=== PATIENT | female | born 1995 | race Hispanic/Latino ===

== ENCOUNTER 2017-05-15 16:36 | Emergency (ER) | payer BC ==
[2017-05-15 17:13] LABS: #Eosinphils 0.1 thou/uL (0.0-0.7); #Monocytes 0.4 thou/uL (0.11-0.59); #Neutrophils 4.4 thou/uL (1.40-6.50); %Basophils 0.2 % (0.0-1.0); %Eosinophils 1.7 % (0.0-10.0); %Lymphocytes 28.7 % (21.0-51.0); %Monocytes 6.3 % (0.0-10.0); Hematocrit 38.3 % (36.0-47.0); Mean Platelet Volume 6.6 fL (7.4-10.4); Red Blood Cell (RBC) Count 4.44 mill/uL (4.20-5.40); White Blood Cell (WBC) Count 6.9 thou/uL (4.8-10.8)
[2017-05-15 17:32] LABS: ALT (SGPT) 36 U/L (8-55); AST (SGOT) 23 U/L (5-34); Alkaline Phosphatase 73 U/L (40-150); Anion Gap 12 mmol/L (10-20); BUN (Urea Nitrogen) 6 mg/dL (7.0-18.7); Bilirubin, Total Less than 0.2 mg/dL (0.2-1.2); Calc. Creatinine Clearance 0 mL/min (70-130); Calcium 9.5 mg/dL (7.8-10.44); Carbon Dioxide 24 mmol/L (22-29); Chloride 103 mmol/L (98-107); Estimated GFR-MDRD Greater than 90; Globulin 3.1 g/dL (2.4-3.5); Protein, Total 6.8 g/dL (6.0-8.3)
--- NOTE | 2017-05-15 18:03 | ULT ---
OB ULTRASOUND: 05/15/17 HISTORY: Vaginal spotting for the past three weeks. FINDINGS: A single live intrauterine gestation is seen with measurements corresponding to an estimated gestati onal age of 17 weeks, 3 days and NORRIS at 10/20/17. The estimated weight measures 181 grams or 6 oz. BIOMETRY: BPD 3.87 cm 17 weeks, 5 days HC 14.65 cm 17 weeks, 6 days AC 11.18 cm 17 weeks, 0 days FL 2.33 cm 17 weeks, 0 days heart rate measures 135 beats per minute. Placenta is anteriorly located without evidence of p lacenta previa. Amniotic fluid is adequate. The cervical length measures 4.2 cm. The visualized anatomy including the stomach, four chamber heart, lateral ventricles, cerebell um, urinary bladder, cord insertion, upper and lower extremities are unremarkable. The remainder of the anatomy is not satisfactorily visualized. IMPRESSION: Single live IUP of 17 weeks, 3 days estimated gestational age and NORRIS at 10/20/17. POS: [facility]
[2017-05-15 18:06] LABS: Bilirubin Negative (Negative); Blood, Urine Trace (Negative); Glucose, Urine (Dipstick) Negative (Negative); Ketone, Urine Negative (Negative); Nitrite Negative (Negative); Protein, Urine (Dipstick) Negative (Neg-Trace); Urobilinogen 0.2 mg/dL (0.2-1.0)
[2017-05-15 18:12] LABS: Bacteria/HPF 1+ HPF (None Seen); Hyaline Casts/LPF 0-3 HYALINE CAST LPF (0-3 Hyaline); Squamous Epithelial 0-3 HPF (0-3)
== END 2017-05-15 18:57 | disposition home or self-care (01) ==
LOC: ERS 16:36
DX: O20.9 Hemorrhage in early pregnancy, unspecified (principal); O23.42 Unspecified infection of urinary tract in pregnancy, second trimester; O99.89 Other specified diseases and conditions complicating pregnancy, childbirth and the puerperium; G47.00 Insomnia, unspecified; O99.342 Other mental disorders complicating pregnancy, second trimester; F41.9 Anxiety disorder, unspecified; Z3A.15 15 weeks gestation of pregnancy; Z79.899 Other long term (current) drug therapy
CPT/HCPCS: 36415; 76805; 80053; 81003; 81015; 84702; 85025; 86900; 86901; 87086; 87480; 87491; 87510; 87591; 87660

== ENCOUNTER 2017-10-14 21:00 | Inpatient (IN) | payer BC, OTHER ==
[~2017-10-14 21:00] MED LIST: Bupivacaine 0.25% HCL 30 ML VIAL ONE; Labetalol 100 MG/20 ML MDV ONE; hydrALAZINE 20 MG/ML VIAL ONE
[2017-10-14] MEDS: Lactated Ringer's 1,000 ML IV SCH (23:00)
[2017-10-14] MEDS ORDERED: Misoprostol 100 MCG TAB ONE (23:19)
[2017-10-14] MEDS ORDERED: Diphenoxylate HCl/Atropine Tablet PO PRN (23:22)
[2017-10-14] MEDS ORDERED: Methylergonovine 0.2 MG/ML VIAL IM PRN (23:22)
[2017-10-14] MEDS ORDERED: Misoprostol 200 MCG TAB PR PRN (23:22)
[2017-10-14] MEDS ORDERED: Promethazine HCl 25 MG/ML VIAL IM PRN (23:22)
[2017-10-14] MEDS ORDERED: HYDROcodone/Acetaminophen 5/325 mg Tablet PO PRN (23:22)
[2017-10-14] MEDS ORDERED: Lidocaine 1% (PF) 30 ML VIAL SC PRN (23:22)
[2017-10-14] MEDS ORDERED: Acetaminophen 500 MG TAB PO PRN (23:22)
[2017-10-14] MEDS ORDERED: Ibuprofen 800 MG TAB PO PRN (23:22)
[2017-10-14] MEDS ORDERED: Ondansetron HCl/PF 4 MG/2 ML Vial IVP PRN (23:22)
[2017-10-14] MEDS ORDERED: Zolpidem Tartrate 5 MG TAB PO PRN (23:22)
[2017-10-14] MEDS ORDERED: LR 500 ML/Oxytocin 10 units 500 ML IV SCH (23:22)
[2017-10-14] MEDS ORDERED: Carboprost 250 MCG/ML AMP IM PRN (23:22)
[2017-10-14 23:46] VITALS: BMI 37.5
[2017-10-15] MEDS: Misoprostol 100 MCG TAB VAG SCH ×3 (00:26→06:48)
[2017-10-15 00:28] LABS: Hemoglobin 11.2 g/dL (12.0-16.0); Mean Corpuscular HGB CONC 33.9 g/dL (32.0-36.0); Mean Corpuscular Hemoglobin 26.8 pg (27.0-31.0); Mean Corpuscular Volume 79.1 fl (81.0-99.0); Mean Platelet Volume 8.1 fL (7.4-10.4); Platelet Count 250 thou/uL (130-400); RBC Distribution Width 15.7 % (11.5-14.5); Red Blood Cell (RBC) Count 4.18 mill/uL (4.20-5.40); White Blood Cell (WBC) Count 6.3 thou/uL (4.8-10.8)
[2017-10-15 01:03] LABS: Hep B Surf Ag Non-Reactive S/CO (NonReactive); Syphilis Antibody Nonreactive (Nonreactive); Syphilis Antibody Index 0.04 S/CO (<1.00 Non-Reactive)
[2017-10-15] MEDS: Lactated Ringer's 1,000 ML IV SCH ×4 (06:48→15:50)
--- NOTE | 2017-10-15 08:08 | PDOC.LDHP ---
Labor and Delivery H&P Chief complaint: scheduled induction HPI: 22yo at 40w2d by LMP c/w 15w sono for IOL. No complaints. s/p 3 doses cytotec overnight, mild contractions. Current gestational age (weeks): 40 Due date: 10/13/17 Dating criteria: last menstrual period Grav: 2 Para: 1 Current complications: none Abnormal US findings: No Past Medical History: denies Current medications: pre- vitamins Previous surgical history: none Allergies/Adverse Reactions: Allergies Allergy/AdvReac Type Severity Reaction Status Date / Time No Known Allergies Allergy Unverified 08/16/13 06:31 Social history: none - Physical Exam Vital signs reviewed and normal: yes General: NAD Heart: RRR Lungs: CTAB Abdomen: gravid Extremeties: no edema FHT: category 1 [place] contractions every: irregular - Vaginal Exam cm dilated: 2 Effacement: 75% Station: -2 (arom clear) - OB Labs Blood type: O RH: positive Antibody Screen: negative HIV: negative RPR: negative HEPSAg: negative 1 hour GCT: positive 3 hour GTT: negative GBS: negative Rubella: immune - Assessment L&D Assessment: elective induction at term - Plan Plan: admit to L&D, labor augmentation if indicated, informed consent obtained, anesthesia consult for pain management
[2017-10-15] MEDS ORDERED: DISCONTINUE ALL PREVIOUS NARCOTICS FS SCH (09:30)
[2017-10-15] MEDS: Bupivacaine 0.5% 20 ML, Fentanyl 400 MCG in Sodium Chloride 0.9% 72 ML EPIDURAL SCH ×2 (10:15→16:04)
--- NOTE | 2017-10-15 12:58 | PDOC.LDPN ---
Labor & Delivery Progress Note - Subjective Subjective: comfortable - Objective Vital signs reviewed and normal: yes General: NAD Uterine fundus: non tender Dilation: 6 Effacement: 90% Station: 0 FHT: category 1 [place] contractions every: q2-3min - Assessment (1) Term delivered Code(s): O80 - ENCOUNTER FOR FULL-TERM UNCOMPLICATED DELIVERY Current Visit: Yes Status: Acute Plan: continue plan of care
[2017-10-15] MEDS: LR / Pitocin 40 units/1000 ml 1,000 ML IV PRN ×2 (15:22→18:35)
[2017-10-15] MEDS ORDERED: Methylergonovine 0.2 MG/ML VIAL ONE ×2 (15:41→16:06)
[2017-10-15 16:12] LABS: Hemoglobin 10.7 g/dL (12.0-16.0); Mean Corpuscular HGB CONC 32.9 g/dL (32.0-36.0); Mean Corpuscular Hemoglobin 26.2 pg (27.0-31.0); Mean Corpuscular Volume 79.7 fl (81.0-99.0); Mean Platelet Volume 8.3 fL (7.4-10.4); Platelet Count 237 thou/uL (130-400); RBC Distribution Width 15.8 % (11.5-14.5); Red Blood Cell (RBC) Count 4.09 mill/uL (4.20-5.40); White Blood Cell (WBC) Count 8.8 thou/uL (4.8-10.8)
[2017-10-15 16:18] LABS: PTT 24.8 SEC (22.9-36.1)
--- NOTE | 2017-10-15 16:34 | PDOC.OPDEL ---
OB Operative/Delivery Note Delivery Dr/Surgeon: Diane Assist: n/a Pre-Delivery Diagnosis: elective induction Procedure/Post Delivery Dx: spontaneous vaginal delivery Weeks gestation: 40 Anesthesia: epidural - Findings A Sex: female Weight: 8 lb 7 oz - 1 min: 8 - 5 min: 9 - Additional Findings/Plan Placenta delivered: spontaneous Repaired Obstetrical Laceration: none Estimated blood loss: 500, initially Compilations/Other Findings: NC x 1 Placenta delivered intact with gentle traction. Immediate gushing of bright red blood, bimanual massage improved. Polanco catheter in bladder. Pitocin infusion. Again bright red gushing blood and clots noted, cytotec 800mcg and methergine 0.2mg called for and given. Manual uterine curretage with hand performed and fragments of membranes extracted. Tone improved with scant bleeding. EBL = 500cc. Approx 5min later nursing performing fundal massage and extruded 200cc clot, I then reexamined patient and 100cc additional clot pulled from lower segment with constant trickling noted. T&C, second IV, hemabate and TXA called for. Continued bimanual massage given and uterus noted to be boggy. No additional membranes or placental fragments pulled from uterus. Hemabate and second dose methergine given. Cervix ran and no lacerations noted. Dr Gómez entered room and bakri was opened as uterus still continued to have gushing and clots in [place]. Dr Gómez did abdominal sono while I inserted bakri to fundus. Balloon was inflated with 300cc sterile saline and stayed well in uterus. Drain hooked up to polanco to gravity. No bleeding around bakri noted. Third dose of methergine given after additional 15minutes. TXA infusion began. Small amount of blood draining into polanco bag. Fundus approx 3 fingerbreadths above umbilicus. Resono'ed and no appearance of back up of blood around the bakri balloon noted. Vital signs were stable, pt is asymptomatic. Labs sent for CBC, coags, fibrinogen. Pt . Plan continue methergine scheduled po, cont epidural x 4 hrs and if stable begin deflating balloon in 12 hours, over then next 12 hours. Total ebl 2L. Post delivery plan: recovery in LICU
[2017-10-15] MEDS ORDERED: Methylergonovine 0.2 MG/ML VIAL IM SCH ×2 (17:00)
[2017-10-15] MEDS ORDERED: Lanolin Ointment 7 GM TUBE TOP PRN ×2 (19:43→19:51)
[2017-10-15] MEDS ORDERED: diphenhydrAMINE 25 MG CAP PO PRN (19:51)
[2017-10-15] MEDS ORDERED: HYDROcodone/Acetaminophen 5/325 mg Tablet PO PRN (19:51)
[2017-10-15] MEDS ORDERED: Milk Of Magnesia 30 ML UDCUP PO PRN (19:51)
[2017-10-15] MEDS ORDERED: Bisacodyl 10 MG SUPP PR PRN (19:51)
[2017-10-15] MEDS ORDERED: LR / Pitocin 40 units/1000 ml 1,000 ML IV SCH (19:51)
[2017-10-15] MEDS ORDERED: Preparation H Ointment 28 GM TUBE PR PRN (19:51)
[2017-10-15] MEDS ORDERED: Benzocaine/Menthol 20-0.5% 60 ML CAN TOP PRN (19:51)
[2017-10-15 20:37] LABS: #Basophils 0.1 thou/uL (0.0-0.2); #Lymphocytes 1.2 thou/uL (1.20-3.40); #Monocytes 0.8 thou/uL (0.11-0.59); #Neutrophils 9.6 thou/uL (1.40-6.50); %Basophils 0.5 % (0.0-1.0); %Lymphocytes 10.6 % (21.0-51.0); Hemoglobin 9.3 g/dL (12.0-16.0); Mean Corpuscular HGB CONC 32.9 g/dL (32.0-36.0); Mean Corpuscular Hemoglobin 26.1 pg (27.0-31.0); Mean Corpuscular Volume 79.3 fl (81.0-99.0); Mean Platelet Volume 8.3 fL (7.4-10.4); Platelet Count 212 thou/uL (130-400); RBC Distribution Width 15.7 % (11.5-14.5); Red Blood Cell (RBC) Count 3.56 mill/uL (4.20-5.40); White Blood Cell (WBC) Count 11.7 thou/uL (4.8-10.8)
[2017-10-15] MEDS ORDERED: Ferrous Sulfate 325 MG TAB PO SCH (20:45)
[2017-10-15] MEDS ORDERED: Methylergonovine 0.2 MG TAB PO SCH (21:00)
[2017-10-15] MEDS: CEFAZOLIN/Water 2 GM/20 ML SYRINGE SLOW IVP SCH (21:30)
[2017-10-15] MEDS: Tranexamic Acid 1,000 MG in Sodium Chloride 0.9% 250 ML 250 ML IVPB SCH (21:30)
[2017-10-15] MEDS ORDERED: CEFAZOLIN 2 GM in Sodium Chloride 0.9% 100 ML IVPB SCH (22:00)
--- NOTE | 2017-10-16 01:57 | PDOC.EVN ---
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 No acute needs now. Patient resting now. Serial Hcts in processs. Lorena in use, with sherri. Stable at this point.
[2017-10-16] MEDS: Ibuprofen 800 MG TAB PO SCH ×4 (03:32→20:30)
[2017-10-16] MEDS: Docusate Calcium (SURFAK) 240 MG CAP PO SCH ×3 (03:32→20:30)
[2017-10-16 05:29] LABS: Mean Corpuscular HGB CONC 32.7 g/dL (32.0-36.0); Mean Corpuscular Hemoglobin 26.1 pg (27.0-31.0); Mean Corpuscular Volume 79.9 fl (81.0-99.0); Mean Platelet Volume 8.2 fL (7.4-10.4); Platelet Count 207 thou/uL (130-400); RBC Distribution Width 15.8 % (11.5-14.5); Red Blood Cell (RBC) Count 3.06 mill/uL (4.20-5.40)
[2017-10-16] MEDS: Tranexamic Acid 1,000 MG in Sodium Chloride 0.9% 250 ML 250 ML IVPB SCH (05:45)
[2017-10-16] MEDS: CEFAZOLIN/Water 2 GM/20 ML SYRINGE SLOW IVP SCH (05:55)
--- NOTE | 2017-10-16 08:05 | PDOC.PP ---
Post Progress Note Post Day #: 1 PO intake tolerated: yes Flatus: yes Ambulation: no Weight Weight 233 lb - Physical Examination General: NAD Cardiovascular: RRR Respiratory: non-labored breathing Abdominal: no distention, appropriately TTP Fundus firm & at: umb-2 Extremities: negative homans (B) Skin: no rash Neurological: no gross focal deficits Psychiatric: normal affect Result Diagrams: 10/16/17 04:46 Additional Labs: Post Labs Blood Type O POSITIVE 10/15/17 00:05 Hep Bs Antigen Non-Reactive S/CO (NonReactive) 10/15/17 00:05 (1) Term delivered Code(s): O80 - ENCOUNTER FOR FULL-TERM UNCOMPLICATED DELIVERY Status: Acute (2) hemorrhage Code(s): O72.1 - OTHER IMMEDIATE HEMORRHAGE Status: Acute Qualifiers: hemorrhage type: other immediate Qualified Code(s): O72.1 - Other immediate hemorrhage - Assessment/Plan VSSAF PPH ebl 2L Hgb 11.2--> hgb 8.0 this am. No s/sx anemia. Trend tomorrow am. Would expect hgb in 7 range with EBL. Cont iron, no indication for transfusion at this time. Bakri in place- Deflate over next 2hr and observe for bleeding x 1 hr, if stable and appropriate bleeding will transfer to floor this am. Stop uterotonics and ppx Ancef. DC polanco with bakri and ambulate - doing well Rh pos RImm Cont care, possible home tomorrow if stable.
[2017-10-16] MEDS ORDERED: Adacel (T-DAP) 0.5 ML VIAL IM ONE (09:00)
[2017-10-16] MEDS: Prenatal Vitamin 1 TAB PO SCH (12:01)
[2017-10-16] MEDS: Ferrous Sulfate 325 MG TAB PO SCH ×2 (12:01→20:30)
[2017-10-17] MEDS: Ibuprofen 800 MG TAB PO SCH (06:03)
[2017-10-17] MEDS: Docusate Calcium (SURFAK) 240 MG CAP PO SCH (09:05)
[2017-10-17] MEDS: Prenatal Vitamin 1 TAB PO SCH (09:06)
[2017-10-17] MEDS: Ferrous Sulfate 325 MG TAB PO SCH (09:06)
[2017-10-17 12:29] VITALS: BP 113/72; TEMP 97.4
--- NOTE | 2017-10-24 14:40 | PQF ---
Sanam AlarconKATIE [id number] [facility] [id number] CLINICAL DOCUMENTATION CLARIFICATION FORM: POST DISCHARGE Addendum to original discharge summary date: ____ Late entry note date: __ DATE: 10/20/2017 ATTN: Dr. Contreras Please exercise your independent, professional judgment in responding to the clarification form. Clinical indicators are provided on the bottom of this form for your review Please check appropriate box(s): [ X] Acute blood loss anemia [ ] Post-op anemia related to acute blood loss [ ] Anemia: [ ] Aplastic [ ] Nutritional [ ] Drug induced (specify) ___ [ ] Hemolytic [ ] Hereditary [ ] Acquired [ ] Autoimmune [ ] Non-autoimmune [ ] Enzyme disorder [ ] Chronic Anemia: [ ] Blood loss [ ] Hemolytic [ ] Simple [ ] Due to Vitamin B12 Deficiency [ ] Other [ ] Anemia of Chronic Disease (please specify) [ ] Anemia due to Neoplasm: [ ] Primary [ ] Secondary [ ] Anemia due to (please choose): [ ] Due to Chemotherapy [ ] Due to Radiotherapy [ ] Due to Immunotherapy [ ] Other diagnosis [ ] Unable to determine In addition, please specify: Present on Admission (POA): [ ] Yes [ ] No [ ] Unable to determine For continuity of documentation, please document condition throughout progress notes and discharge summary. Thank You. CLINICAL INDICATORS - SIGNS / SYMPTOMS / LABS Acute bleed Anemia Low hemoglobin and/or hematocrit Estimated blood loss RISK FACTORS hemorrhage TREATMENTS: placement of Bakri balloon MTDD
== END 2017-10-17 12:49 | disposition home or self-care (01) | DRG 982 ==
LOC: L&D 22:23 → 3SE 10-16 12:32
PROVIDERS: ADMIT Student in an Organized Health Care Education/Training Program; ATTEND Student in an Organized Health Care Education/Training Program
PROC: 3E0P7VZ Introduction of Hormone into Female Reproductive, Via Natural or Artificial Opening (ICD-10-PCS; 2017-10-14)
PROC: 10E0XZZ Delivery of Products of Conception, External Approach (ICD-10-PCS; principal; 2017-10-15)
PROC: 0UCC0ZZ Extirpation of Matter from Cervix, Open Approach (ICD-10-PCS; 2017-10-15)
PROC: 0W3J0ZZ Control Bleeding in Pelvic Cavity, Open Approach (ICD-10-PCS; 2017-10-15)
DX: O72.2 Delayed and secondary postpartum hemorrhage (principal); D62 Acute posthemorrhagic anemia; Z37.0 Single live birth
CPT/HCPCS: 36415; 51702; 76815; 85027; 85384; 85610; 85730; 86780; 86850; 86900; 86901; 87340; 90715; J0360; J2001; J2210; J2405; J3010; J3490; J7050; J7120; S0020

== ENCOUNTER 2017-10-24 12:21 | Emergency (ER) | payer BC, OTHER ==
[2017-10-24 12:44] LABS: #Eosinphils 0.1 thou/uL (0.0-0.7); #Lymphocytes 2.7 thou/uL (1.20-3.40); #Monocytes 0.4 thou/uL (0.11-0.59); #Neutrophils 3.1 thou/uL (1.40-6.50); %Basophils 0.5 % (0.0-1.0); %Eosinophils 0.9 % (0.0-10.0); %Lymphocytes 43.4 % (21.0-51.0); %Monocytes 5.9 % (0.0-10.0); %Neutrophils 49.3 % (42.0-75.0); Hemoglobin 9.8 g/dL (12.0-16.0); Mean Corpuscular HGB CONC 32.2 g/dL (32.0-36.0); Mean Corpuscular Volume 80.8 fl (81.0-99.0); Mean Platelet Volume 6.2 fL (7.4-10.4); Platelet Count 542 thou/uL (130-400); RBC Distribution Width 17.4 % (11.5-14.5); Red Blood Cell (RBC) Count 3.76 mill/uL (4.20-5.40); White Blood Cell (WBC) Count 6.2 thou/uL (4.8-10.8)
[2017-10-24] MEDS ORDERED: Morphine 4 MG/ML VIAL ONE (12:46)
[2017-10-24] MEDS ORDERED: Ondansetron HCl/PF 4 MG/2 ML Vial ONE (12:47)
[2017-10-24 12:55] LABS: PTT 25.5 SEC (22.9-36.1); Prothrombin Time 13.4 SEC (12.0-14.7)
[2017-10-24 12:57] LABS: D-Dimer Test 1.53 *mcg/mL (0.27-0.43)
[2017-10-24 13:11] LABS: Bilirubin Negative (Negative); Blood, Urine Negative (Negative); Clarity CLOUDY (Clear); Glucose, Urine (Dipstick) Negative (Negative); Leukocyte Trace (Negative); Nitrite Negative (Negative); Protein, Urine (Dipstick) 30 mg/dL (Neg-Trace)
[2017-10-24 13:19] LABS: Bacteria/HPF None Seen HPF (None Seen); Pathc Cast-AUWi Flag 1.76 (0-2.49)
[2017-10-24 13:22] LABS: ALT (SGPT) 26 U/L (8-55); AST (SGOT) 26 U/L (5-34); Albumin 3.7 g/dL (3.5-5.0); Alkaline Phosphatase 150 U/L (40-150); Anion Gap 21 mmol/L (10-20); BUN (Urea Nitrogen) 11 mg/dL (7.0-18.7); Bilirubin, Total 0.2 mg/dL (0.2-1.2); Calc. Creatinine Clearance 0 mL/min (70-130); Calcium 9.3 mg/dL (7.8-10.44); Carbon Dioxide 15 mmol/L (22-29); Chloride 107 mmol/L (98-107); Estimated GFR-MDRD Greater than 90; Glucose 96 mg/dL (70-105); Lipase 26 U/L (8-78); Potassium 3.7 mmol/L (3.5-5.1); Protein, Total 6.7 g/dL (6.0-8.3); Sodium 139 mmol/L (136-145)
[2017-10-24 13:30] LABS: Hyaline Casts/LPF 0-3 HYALINE CAST LPF (0-3 Hyaline); RBC/HPF 0-3 HPF (0-3); Renal Epithelial None Seen HPF (0-3); Transitional Epithelial NONE SEEN HPF (0-3)
[2017-10-24] MEDS ORDERED: ISOVUE-370 76%-LOCM 1 ML ONE (13:53)
[2017-10-24] MEDS ORDERED: metroNIDAZOLE 500 MG/100 ML BAG ONE (14:29)
[2017-10-24] MEDS ORDERED: Piperacillin/Tazobactam 4.5 GM in Sodium Chloride 0.9% 100 ML IVPB SCH (14:45)
--- NOTE | 2017-10-24 17:43 | ULT ---
PELVIC ULTRASOUND INCLUDING TRANSABDOMINAL AND VASCULAR DUPLEX WITH COLOR AND SPECTRAL DOPPLER IMAGIN 10/24/17 HISTORY: 22-year-old female with pelvic pain. The uterus is markedly enlarged measuring 16 cm in length and 5.2 x 10.2 cm transversely with a marke dly thickened endometrium which is very heterogeneous and has some hypoechoic changes within it. The right ovary measures 1.5 x 2.1 x 2.6 cm. The left ovary measures 1.0 x 2.2 x 2.8 cm. Given the histor y of vaginal delivery on 10/25/16, this probably represents just some residual fluid and debris within the uterus. Patient refused transvaginal examination. Vascular duplex with color and spectral doppler imaging demonstrates no evidence for ovarian torsion. No abscess or abnormal fluid collection. IMPRESSION: Markedly enlarged uterus with some heterogeneous mostly hypoechoic changes within a thicke jacob endometrium of 2.1 cm. No focal identifiable retained products of conception. Unremarkable ovarie s. POS: [facility]
--- NOTE | 2017-10-24 17:52 | CT ---
CT ANGIOGRAM CHEST INCLUDING 3D RENDERIN10/24/17 HISTORY: 22-year-old female with history of chest pain and suprapubic pain. No significant CT evidence for acute pulmonary emboli. No evidence for aortic aneurysm. No mediastina l mass. No pleural effusion or pericardial effusion. No acute pulmonary parenchymal process. IMPRESSION: No CT evidence for acute pulmonary embolism. No other significant acute process. POS: [facility]
--- NOTE | 2017-10-24 18:09 | CT ---
ABDOMEN AND PELVIC CT SCAN WITH IV CONTRAST: 10/24/17 HISTORY: 22-year-old female with history of abdominal pain and suprapubic pain. Recent vaginal delivery on 10/15. The lung bases appear clear. The liver, gallbladder, pancreas, spleen, and adrenal glands are unremar kable. No renal calculi or acute obstruction. Enlarged uterus with some associated hete rogeneous enhancement, nonspecific. No CT evidence for acute appendicitis. No abscess or abnormal flu id collection. IMPRESSION: Enlarged uterus. No evidence for other significant acute process. Small umbilical fat cont aining hernia. POS: [facility]
--- NOTE | 2017-10-24 22:32 | CON ---
DATE OF CONSULTATION: 10/24/2017 OB ER CONSULTATION REFERRING PHYSICIAN: Dr. Crystal Kahn. CHIEF COMPLAINT: Abdominal pains in the . HISTORY OF PRESENT ILLNESS: The patient is a 22-year-old G2, now P2 female who is approximately post day #9, reporting to the emergency room with acute onset sharp abdominal pain in the left lowe r quadrant, radiating up on the left side. Patient denies any fever. She denies any foul discharge. On ER evaluation, patient was noted to have a lactic acid of 7 and a pelvic ultrasound demonstratin g a thickened endometrium. Dr. Kahn was concerned she may have a complication and aske d for me to come evaluate Ms. Alarcon. Reviewing Ms. Alarcon's delivery record, it was noted the p atfaisal had a hemorrhage requiring ultimately a Bakri balloon for resolution of her bleedin g ending and a blood loss of approximately 2 liters. The patient otherwise had an uncomplicated deli very and . Once this was controlled, the patient reports that she continues to have little to no bleeding or normal amount of bleeding for her . Denies fever. 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 At the time of evaluation, pain had resolved, which was appr oximately 3 hours after the single dose of morphine that she received. The patient does report histor y of constipation with difficulty having bowel movements at home. She does admit to not having a bow el movement for approximately 4 days from discharge and since has had small bowel movements consisten t with constipation. The patient reports that her pain one presented was in the left lower quadrant of her pelvis and seems to radiate up the left side of her abdomen, but is no longer present nearly t o the same degree. The patient denies fever. She denies nausea, vomiting, but she does report a lit tle appetite. PAST MEDICAL HISTORY: The patient reports her symptoms are exacerbated by activity when present. PAST MEDICAL HISTORY: Negative. PAST SURGICAL HISTORY: Negative. ALLERGIES: No known drug allergies. MEDICATIONS: Ibuprofen over the counter. REVIEW OF SYSTEMS: Per HPI. PHYSICAL EXAMINATION: VITAL SIGNS: Blood pressure 113/70, pulse is 72, respiratory rate of 18, temperature 98.7. Pain sca le of 3 with O2 sats 98%. GENERAL: The patient appears to be in no acute distress. She is alert and oriented, cooperative and pleasant to interact with. HEENT: Head is normocephalic, atraumatic. LUNGS: Clear to auscultation bilaterally. HEART: Regular rate and rhythm. ABDOMEN: Soft. She has no suprapubic tenderness. No fundal tenderness. She has some very mild ten derness in the left lower quadrant at time of exam. No CVA tenderness. No paravertebral tenderness. LABORATORY DATA: White count of 6.2, hemoglobin is 9.8, hematocrit 30.4, platelets 542,000. PT 13.4 , INR 1.0. D-dimer is 1.53, sodium is 139, potassium 3.7, chloride 107, BUN 11, creatinine 0.68, glu cose is 96. Lactic acid is 7 with a repeat of 2.0 four hours later, calcium 9.3, AST is 26, ALT 26, lipase of 26. UA shows cloudy urine with high pH of 8, specific gravity of 1.03, protein of 30, keto hever of 40, trace leukocyte esterase, negative nitrites. She has white blood cells 7-10, squamous jennifer ls of 11-20. No bacteria. This was a catheterized specimen. IMAGING: Pelvic ultrasound is consistent with a uterus with a thickened endometrium, no r etained products. CT scan is unremarkable. ASSESSMENT AND PLAN: The patient is a 22-year-old female who is day #9, status post a ter m spontaneous vaginal delivery complicated by atony requiring a Bakri balloon. Patient has had signi ficant constipation in the period and isolated acute abdominal pain today prompting in the ER evaluation by history. Her pain sounds to be consistent with her constipation and is currently m uch improved to resolved with pain medication last given 3 hours ago. I do not believe there is any other [employer] complication in the . The patient has been given instructions to take magnesi um citrate at home followed by daily stool softeners while she is on her iron. She has also been giv en instructions to take her iron with vitamin C to help increase absorption which can also help resol ve the problems of constipation. Should she continue with this problem, [facility], Dr. Contreras. The patient has no signs of infection as a compli cation from her Bakri balloon noted. The patient has been given a dose of Zosyn and Flagyl here in t emergency room. Her urinalysis is contaminated a significant amount of squamous cells and difficu lt to interpret. Patient is without symptoms at this time.
== END 2017-10-24 17:03 | disposition home or self-care (01) ==
LOC: ERS 12:21
DX: N39.0 Urinary tract infection, site not specified (principal); K59.00 Constipation, unspecified; D64.9 Anemia, unspecified; F41.9 Anxiety disorder, unspecified
CPT/HCPCS: 36415; 51701; 71275; 74177; 76856; 80053; 81003; 81015; 83605; 83690; 85025; 85379; 85610; 85730; 86850; 86900; 86901; 87040; 87086; 96361; 96365; 96375; A4353; J2270; J2405; J2543; J7050

== ENCOUNTER 2022-03-19 21:11 | Emergency (ER) | payer BC, OTHER ==
[~2022-03-19 21:11] MED LIST changes: -Bupivacaine 0.25% HCL 30 ML VIAL ONE; +Iopamidol-370 76% 500 ML 1 ML ONE; -Labetalol 100 MG/20 ML MDV ONE; -hydrALAZINE 20 MG/ML VIAL ONE
[2022-03-19 22:14] LABS: #Lymphocytes 2.4 thou/uL (1.20-3.40); #Monocytes 0.5 thou/uL (0.11-0.59); #Neutrophils 6.1 thou/uL (1.40-6.50); %Basophils 0.3 % (0.0-1.0); %Eosinophils 0.4 % (0.0-10.0); %Lymphocytes 26.8 % (21.0-51.0); %Neutrophils 67.5 % (42.0-75.0); Hemoglobin 13.9 g/dL (12.0-16.0); Mean Corpuscular HGB CONC 33.3 g/dL (32.0-36.0); Mean Corpuscular Hemoglobin 29.1 pg (27.0-31.0); Mean Corpuscular Volume 87.5 fL (78.0-98.0); Mean Platelet Volume 6.5 fL (7.4-10.4); Platelet Count 299 thou/uL (130-400); Red Blood Cell (RBC) Count 4.76 mill/uL (4.20-5.40); White Blood Cell (WBC) Count 9.1 thou/uL (4.8-10.8)
[2022-03-19 22:35] LABS: ALT (SGPT) 74 U/L (8-55); AST (SGOT) 40 U/L (5-34); Albumin 4.4 g/dL (3.5-5.0); Alkaline Phosphatase 92 U/L (40-110); Anion Gap 13 mmol/L (10-20); BUN (Urea Nitrogen) 11 mg/dL (7.0-18.7); Bilirubin, Total 0.4 mg/dL (0.2-1.2); Calc. Creatinine Clearance 0 mL/min (70-130); Calcium 9.3 mg/dL (7.8-10.44); Carbon Dioxide 26 mmol/L (22-29); Chloride 102 mmol/L (98-107); Estimated GFR 104; Glucose 113 mg/dL (70-105); Potassium 3.8 mmol/L (3.5-5.1); Protein, Total 7.4 g/dL (6.0-8.3); Sodium 137 mmol/L (136-145)
[2022-03-19 22:38] LABS: Bilirubin Negative (Negative); Blood, Urine Negative (Negative); Clarity Clear (Clear); Glucose, Urine (Dipstick) Normal (Negative); Ketone, Urine Negative (Negative); Leukocyte Negative Leu/uL (Negative); Nitrite Negative (Negative); Protein, Urine (Dipstick) Negative (Neg-Trace); Specific Gravity, Urine 1.017 (1.002-1.036); Urobilinogen Normal mg/dL (Less than 2)
[2022-03-19 22:39] LABS: Pregnancy Test - Urine (BHCG) Negative (Negative); Pregu Control Background? CLEAR/WHITE (CLR/WHITE); Pregu Control Bar Appear? YES (CONTROL BAR); Specific Gravity 1.017 (1.002-1.036)
== END 2022-03-20 00:15 | disposition home or self-care (01) ==
LOC: ERS 21:11
DX: S16.1XXA Strain of muscle, fascia and tendon at neck level, initial encounter (principal); S30.1XXA Contusion of abdominal wall, initial encounter; V89.2XXA Person injured in unspecified motor-vehicle accident, traffic, initial encounter
CPT/HCPCS: 36415; 71260; 74177; 80053; 81003; 81025; 85025; Q9967